=== PATIENT | female | born 1980 | race Caucasian/White ===

== ENCOUNTER 2017-09-11 16:04 | Emergency (ER) | payer OTHER ==
[~2017-09-11] VITALS: Ht 167.6 cm; Wt 127.0 kg
[~2017-09-11 16:04] MED LIST: ALBU90OI INH; BENZ100A PO; HYDACE5 PO; IBUP800 PO; NAPR500 PO; ORACON PO; Prednisone20 MG PO
== END 2017-09-11 16:40 | disposition home or self-care (01) ==
LOC: ER 16:04
DX: M79.604 Pain in right leg (principal); V89.2XXA Person injured in unspecified motor-vehicle accident, traffic, initial encounter; Z88.5 Allergy status to narcotic agent; Z91.018 Allergy to other foods; Z79.899 Other long term (current) drug therapy; Z79.52 Long term (current) use of systemic steroids; F17.200 Nicotine dependence, unspecified, uncomplicated
CPT/HCPCS: 99282

== ENCOUNTER 2017-11-10 00:01 | Emergency (ER) | payer OTHER ==
[~2017-11-10] VITALS: Ht 170.2 cm; Wt 131.5 kg
== END 2017-11-10 02:05 | disposition home or self-care (01) ==
LOC: ER 00:01
DX: S90.31XA Contusion of right foot, initial encounter (principal); F17.200 Nicotine dependence, unspecified, uncomplicated; Z88.5 Allergy status to narcotic agent; Z91.018 Allergy to other foods; W22.8XXA Striking against or struck by other objects, initial encounter
CPT/HCPCS: 73630; 99283

== ENCOUNTER 2019-05-20 17:51 | Emergency (ER) | payer OTHER ==
[~2019-05-20] VITALS: Ht 172.7 cm; Wt 105.7 kg
== END 2019-05-20 21:43 | disposition home or self-care (01) ==
LOC: ER 17:51
DX: S61.212A Laceration without foreign body of right middle finger without damage to nail, initial encounter (principal); F17.200 Nicotine dependence, unspecified, uncomplicated; Z88.5 Allergy status to narcotic agent; Z91.018 Allergy to other foods; W25.XXXA Contact with sharp glass, initial encounter
CPT/HCPCS: 12001; 73130; 99283-25

== ENCOUNTER 2024-06-02 19:20 | Emergency (ER) | payer OTHER ==
[~2024-06-02] VITALS: Ht 167.6 cm; Wt 117.9 kg
[2024-06-02 19:57] VITALS: BP 160/95
== END 2024-06-02 21:21 | disposition home or self-care (01) ==
LOC: ER 19:20
DX: L02.411 Cutaneous abscess of right axilla (principal); F17.200 Nicotine dependence, unspecified, uncomplicated; Z88.5 Allergy status to narcotic agent; Z91.018 Allergy to other foods
CPT/HCPCS: 99283-25

== ENCOUNTER 2024-07-17 03:07 | Day surgery (SDC) | payer OTHER ==
[~2024-07-17 03:07] MED LIST changes: +Sod Ferric Gluc Complx/Sucrose 125 MG in NS 100 ML IV SCH
[2024-07-17 14:55] VITALS: BP 161/87
[2024-07-17] MEDS ORDERED: PRENATAL TABLE1 EAC2 PO (15:33)
== END 2024-07-17 15:59 | disposition home or self-care (01) ==
LOC: ATC 03:07
DX: D50.9 Iron deficiency anemia, unspecified (principal); F17.291 Nicotine dependence, other tobacco product, in remission; Z88.5 Allergy status to narcotic agent
CPT/HCPCS: 96365; J2916

== ENCOUNTER → 2024-07-24 | Outpatient (CLI) | payer OTHER ==
[~2024-07-24] MED LIST changes: +PRENATAL TABLE1 EAC2 PO; -Sod Ferric Gluc Complx/Sucrose 125 MG in NS 100 ML IV SCH
[2024-07-26 11:19] LABS: Stool Occult Bld Immuno 1 Negative (NEGATIVE)
== END ==
LOC: LAB 21:00 → LAB SHORT 21:00
PROVIDERS: Physician Assistant
DX: Z12.11 Encounter for screening for malignant neoplasm of colon (principal)
CPT/HCPCS: 82274

== ENCOUNTER 2024-07-25 03:27 | Day surgery (SDC) | payer OTHER ==
[2024-07-25] MEDS ORDERED: Sod Ferric Gluc Complx/Sucrose 125 MG in NS 100 ML IV SCH (06:00)
[2024-07-25 11:03] VITALS: BP 134/81
== END 2024-07-25 12:08 | disposition home or self-care (01) ==
LOC: ATC 03:27
DX: D50.9 Iron deficiency anemia, unspecified (principal); F41.1 Generalized anxiety disorder; F17.290 Nicotine dependence, other tobacco product, uncomplicated; Z88.5 Allergy status to narcotic agent; Z91.018 Allergy to other foods
CPT/HCPCS: 96365; J2916

== ENCOUNTER 2024-07-28 03:13 | Day surgery (SDC) | payer OTHER ==
[2024-07-28] MEDS ORDERED: Sod Ferric Gluc Complx/Sucrose 125 MG in NS 100 ML IV SCH (06:00)
[2024-07-28 14:20] VITALS: BP 140/50
== END 2024-07-28 15:40 | disposition home or self-care (01) ==
LOC: ATC 03:13
DX: D50.9 Iron deficiency anemia, unspecified (principal); N92.0 Excessive and frequent menstruation with regular cycle; K05.6 Periodontal disease, unspecified; E66.01 Morbid (severe) obesity due to excess calories; Z68.41 Body mass index [BMI] 40.0-44.9, adult; Z87.891 Personal history of nicotine dependence; Z59.819 Housing instability, housed unspecified; Z88.5 Allergy status to narcotic agent; Z91.018 Allergy to other foods
CPT/HCPCS: 96365; J2916

== ENCOUNTER 2024-08-04 00:20 | Day surgery (SDC) | payer OTHER ==
[2024-08-04] MEDS ORDERED: Sod Ferric Gluc Complx/Sucrose 125 MG in NS 100 ML IV SCH (01:00)
[2024-08-04 14:10] VITALS: BP 133/74
[2024-08-04] MEDS ORDERED: METO25ER PO (14:13)
== END 2024-08-04 15:13 | disposition home or self-care (01) ==
LOC: ATC 00:20
DX: D50.9 Iron deficiency anemia, unspecified (principal); F41.1 Generalized anxiety disorder; E66.01 Morbid (severe) obesity due to excess calories; Z68.41 Body mass index [BMI] 40.0-44.9, adult; Z88.5 Allergy status to narcotic agent
CPT/HCPCS: 96365; J2916

== ENCOUNTER 2024-08-11 03:02 | Day surgery (SDC) | payer OTHER ==
[~2024-08-11 03:02] MED LIST changes: +METO25ER PO; +Sod Ferric Gluc Complx/Sucrose 125 MG in NS 100 ML IV SCH
[2024-08-11 14:15] VITALS: BP 136/59
== END 2024-08-11 15:10 | disposition home or self-care (01) ==
LOC: ATC 03:02
DX: D50.9 Iron deficiency anemia, unspecified (principal); F41.1 Generalized anxiety disorder; K05.6 Periodontal disease, unspecified; F17.211 Nicotine dependence, cigarettes, in remission; Z88.5 Allergy status to narcotic agent; Z91.010 Allergy to peanuts
CPT/HCPCS: 96365; J2916

== ENCOUNTER 2024-10-05 00:30 | Day surgery (SDC) | payer OTHER ==
[~2024-10-05 00:30] MED LIST changes: -Sod Ferric Gluc Complx/Sucrose 125 MG in NS 100 ML IV SCH
[2024-10-05] MEDS ORDERED: Sod Ferric Gluc Complx/Sucrose 125 MG in NS 100 ML IV SCH (01:00)
[2024-10-05 16:00] VITALS: BP 144/89
[2024-10-05] MEDS ORDERED: FERSU300 PO (17:41)
[2024-10-05] MEDS ORDERED: Acetaminophen650 M1 PO (17:42)
[2024-10-05] MEDS ORDERED: ASCO500 PO (17:42)
[2024-10-05] MEDS ORDERED: IBUPROFEN200 M1 PO (17:43)
== END 2024-10-05 17:04 | disposition home or self-care (01) ==
LOC: ATC 00:30
DX: D50.0 Iron deficiency anemia secondary to blood loss (chronic) (principal); I47.29 Other ventricular tachycardia; I34.0 Nonrheumatic mitral (valve) insufficiency; J45.20 Mild intermittent asthma, uncomplicated; N92.0 Excessive and frequent menstruation with regular cycle; Z87.891 Personal history of nicotine dependence; Z79.899 Other long term (current) drug therapy; Z88.5 Allergy status to narcotic agent; Z91.018 Allergy to other foods
CPT/HCPCS: 96365; J2916

== ENCOUNTER 2024-10-19 03:52 | Day surgery (SDC) | payer OTHER ==
[~2024-10-19 03:52] MED LIST changes: +ASCO500 PO; +Acetaminophen650 M1 PO; +FERSU300 PO; +IBUPROFEN200 M1 PO; +Sod Ferric Gluc Complx/Sucrose 125 MG in NS 100 ML IV SCH
[2024-10-19 15:06] VITALS: BP 139/83
== END 2024-10-19 15:54 | disposition home or self-care (01) ==
LOC: ATC 03:52
DX: D50.0 Iron deficiency anemia secondary to blood loss (chronic) (principal); I34.0 Nonrheumatic mitral (valve) insufficiency; J45.20 Mild intermittent asthma, uncomplicated; N92.0 Excessive and frequent menstruation with regular cycle; I47.29 Other ventricular tachycardia; Z87.891 Personal history of nicotine dependence; Z79.899 Other long term (current) drug therapy; Z88.5 Allergy status to narcotic agent; Z91.018 Allergy to other foods
CPT/HCPCS: 96365; J2916